=== PATIENT | female | born 1950 | race Caucasian/White ===

== ENCOUNTER → 2017-10-12 | Day surgery (SDC) | payer MEDICARE ==
[2017-10-09 15:01] LABS: BASOPHILS # (AUTO) 0.1 (0.0-0.1); BASOPHILS % 0.9 % (0.0-1.0); EOSINOPHILS # (AUTO) 0.1 (0.0-0.4); EOSINOPHILS % 1.2 % (0.0-6.0); HEMATOCRIT 40.7 % (34.2-44.1); HEMOGLOBIN 12.6 g/dL (12.0-16.0); LYMPHOCYTES # (AUTO) 2.1 (1.0-3.2); LYMPHOCYTES % 24.9 % (18.0-39.1); MEAN CORPUSCULAR HEMOGLOBIN 26.9 pg (28-32); MEAN CORPUSCULAR VOLUME 86.8 fL (81-99); MONOCYTES # (AUTO) 0.8 (0.2-0.8); MONOCYTES % 9.8 % (4.4-11.3); NEUTROPHILS # (AUTO) 5.2 (2.1-6.9); PLATELET COUNT 348 x10e3/uL (140-360); RED BLOOD COUNT 4.69 x10e6/uL (3.6-5.1); RED CELL DISTRIBUTION WIDTH 15.9 % (11.7-14.4)
[~2017-10-12] MED LIST: CELEXA20 MG; FENTANYL CITRATE/PF 100MCG/2 ML INJ ONE; HYOSCYAMINE SULFATE 0.5 MG/ML AMP ONE; MIDAZOLAM HCL 2 MG/2 ML VIAL ONE; PROPOFOL IV EMULSION 10 MG/ML 50 ML VIAL ONE
--- NOTE | 2017-10-12 10:29 | Operative Report ---
DATE OF PROCEDURE: October 12, 2017 REFERRING PHYSICIAN: Peggy Alvarado MD PROCEDURES PERFORMED 1. Esophagogastroduodenoscopy with biopsies. 2. Colonoscopy with polypectomy and biopsies. INDICATIONS FOR EGD: Acid reflux. INDICATIONS FOR COLONOSCOPY: Colorectal cancer screening, personal history of colon polyps, diarrhea. MEDICATION: Patient was done under MAC. Please see anesthesiologist's note. PROCEDURE: With the patient in the left lateral decubitus position, the flexible fiberoptic Olympus gastroscope was introduced into the esophagus under direct visualization without any difficulty. There was some patchy erythema noted in the distal esophagus. The scope was then advanced with ease into the stomach, traversing a small hiatal hernia. Mucosa overlying the antrum and the body revealed some patchy erythema and low-grade to moderate edema, and biopsies were obtained and sent to stain for H. pylori. The pylorus was of normal contour and shape. It was intubated with ease, and the scope was advanced all the way to the 2nd portion of the duodenum. The scope was then withdrawn slowly. Mucosa overlying the proximal 2nd portion and duodenal bulb grossly appeared to be within normal limits. Biopsies were obtained from the proximal 2nd portion to rule out sprue considering the patient's history of diarrhea. The scope was then withdrawn back into the stomach and retroflexed. Mucosa overlying the fundus appeared to be within normal limits. The previously described hiatal hernia was also noted in the retroflexed position. The scope was then straightened out. The stomach was decompressed. Scope was subsequently withdrawn. Patient tolerated the procedure well. IMPRESSION 1. Distal esophagitis. 2. Hiatal hernia. 3. Gastritis, biopsied. Biopsy sent to stain for H. pylori. 4. Rule out sprue. PLAN: Follow up histology. Initiate Protonix 40 mg 1 p.o. q.a.m. a.c. The patient was then turned around. After adequate lubrication of the anal canal, a flexible fiberoptic Olympus colonoscope was inserted into the rectum with ease and advanced all the way to the cecum. Two polyps were snared from the cecum. The scope was then withdrawn slowly. Mucosa overlying the ascending and the transverse appeared to be within normal limits. Mucosa overlying the left colon revealed some patchy mild inflammatory changes. Multiple random biopsies were obtained. Minimal diverticular disease was noted in the sigmoid colon. The scope was then retroflexed into the distal rectum, and small internal hemorrhoids were noted, none of which was actively bleeding. The scope was then straightened out. The rectosigmoid area as well as the distal rectal area were decompressed. Scope was subsequently withdrawn after securing an adequate stool specimen that was sent for the appropriate stool studies. Patient tolerated the procedure well. IMPRESSION 1. Cecal polyps times 2, snared. 2. Mild patchy left-sided colitis. 3. Diverticulosis, minimal. 4. Internal hemorrhoids, none actively bleeding. PLAN: Follow up histology. Follow up stool studies. Initiate VSL #3 one p.o. b.i.d. Start Bentyl 10 mg 1 p.o. t.i.d. Patient will need a followup colonoscopy in 3 years. Job#: [id number] cc:MARYURI ALVARADO MD
[2017-10-12 12:34] LABS: C DIFFICILE TOXIN A&B AMP PROB NEGATIVE (NEGATIVE); WBC,FECAL (FECAL LACTOFERRIN) POSITIVE (NEGATIVE)
== END | disposition home or self-care (01) ==
LOC: OR 06:26
PROVIDERS: ATTEND Internal Medicine Gastroenterology
DX: Z12.11 Encounter for screening for malignant neoplasm of colon (principal); D12.0 Benign neoplasm of cecum; K51.50 Left sided colitis without complications; K29.50 Unspecified chronic gastritis without bleeding; K21.9 Gastro-esophageal reflux disease without esophagitis; K44.9 Diaphragmatic hernia without obstruction or gangrene; K20.9 Esophagitis, unspecified; K57.30 Diverticulosis of large intestine without perforation or abscess without bleeding; K64.8 Other hemorrhoids; R03.0 Elevated blood-pressure reading, without diagnosis of hypertension; E66.01 Morbid (severe) obesity due to excess calories; F41.9 Anxiety disorder, unspecified; Z01.810 Encounter for preprocedural cardiovascular examination; Z01.812 Encounter for preprocedural laboratory examination; Z68.41 Body mass index [BMI] 40.0-44.9, adult
CPT/HCPCS: 36415; 43239; 45385; 83630; 83993; 85025; 87045; 87177; 87328; 87493; 88305; 88312; 93005; J1980; J2250; 45380; 45384

== ENCOUNTER → 2018-06-05 | Day surgery (SDC) | payer MEDICARE, OTHER ==
[~2018-06-05] MED LIST changes: -HYOSCYAMINE SULFATE 0.5 MG/ML AMP ONE; +MULTI-VITAMIN1 EACH PO; +OR PHACO EYE KIT ONE; +PREOP PHACO EYE KIT ONE; -PROPOFOL IV EMULSION 10 MG/ML 50 ML VIAL ONE; +VITAMIN D1000 UNI1 PO
[2018-06-05 13:50] VITALS: BP 153/82
== END | disposition home or self-care (01) ==
LOC: OR 11:40
PROVIDERS: ATTEND Ophthalmology
DX: H25.12 Age-related nuclear cataract, left eye (principal); K58.9 Irritable bowel syndrome, unspecified; K44.9 Diaphragmatic hernia without obstruction or gangrene; M19.90 Unspecified osteoarthritis, unspecified site
CPT/HCPCS: J2250; V2632

== ENCOUNTER → 2018-07-03 | Day surgery (SDC) | payer MEDICARE, OTHER ==
[~2018-07-03] MED LIST changes: +LABETALOL HCL 5 MG/ML 20ML VIAL ONE
--- OUTSIDE RECORDS SUMMARY | 2018-07-03 10:24 | XMS REPORT | Clinical Summary ---
Author Author DONNY [facility] Address Unknown Phone Unavailable Care Team Providers [facility] Sales Representative Name Role Phone Jennifer Pathakwoodrowtabitha PCP Allergies No Known Allergies Medications End Date Status Medication Sig Dispensed Refills Start Date Active citalopram (CELEXA) 20 MG Take 20 mg by 0 tabletIndications: major mouth daily. depressive disorder Active Problems Problem Noted Date Radiculopathy, lumbar region 04/28/2016 Social History Date Tobacco Use Types Packs/Day Years Used Former Smoker Sex Assigned at Date Recorded Not on file Industry Job Start Date Occupation Not on file Not on file Not on file Travel End Travel History Travel Start No recent travel history available. Last Filed Vital Signs Not on file Plan of Treatment Not on file Results Not on fileafter 07/02/2017 Insurance Payer Benefit Subscriber ID Type Phone Address Plan / Group [employer] - [employer] CARE [employer] xxxxxxxxx HMO/POS HMO/POS/OP EN ACCESS
[2018-07-03 13:07] VITALS: BP 161/85
== END | disposition home or self-care (01) ==
LOC: OR 10:23
PROVIDERS: ATTEND Ophthalmology
DX: H25.11 Age-related nuclear cataract, right eye (principal); J44.9 Chronic obstructive pulmonary disease, unspecified; Z87.891 Personal history of nicotine dependence; M06.9 Rheumatoid arthritis, unspecified; M19.90 Unspecified osteoarthritis, unspecified site; K44.9 Diaphragmatic hernia without obstruction or gangrene; Z98.42 Cataract extraction status, left eye; Z96.1 Presence of intraocular lens
CPT/HCPCS: 66984; J2250; J3490; V2632

== ENCOUNTER 2021-10-15 13:29 | Emergency (ER) | payer MEDICARE, OTHER ==
[~2021-10-15] VITALS: Ht 154.9 cm; Wt 97.5 kg
[~2021-10-15 13:29] MED LIST changes: -FENTANYL CITRATE/PF 100MCG/2 ML INJ ONE; -LABETALOL HCL 5 MG/ML 20ML VIAL ONE; -MIDAZOLAM HCL 2 MG/2 ML VIAL ONE; -OR PHACO EYE KIT ONE; -PREOP PHACO EYE KIT ONE
[2021-10-15] MEDS ORDERED: IBUPROFEN 400 MG TAB ONE (13:55)
[2021-10-15] MEDS ORDERED: IBUPROFEN 400 MG TAB PO ONE (14:00)
== END 2021-10-15 15:14 | disposition home or self-care (01) ==
LOC: ER 13:52
DX: R07.89 Other chest pain (principal); M25.531 Pain in right wrist; V43.52XA Car driver injured in collision with other type car in traffic accident, initial encounter; Y92.488 Other paved roadways as the place of occurrence of the external cause
CPT/HCPCS: 71046; 93005; 99283